=== PATIENT | male | born 1950 | race Caucasian/White ===

== ENCOUNTER 2017-03-05 05:32 | Outpatient (CLI) | payer BC ==
[~2017-03-05] VITALS: Ht 177.8 cm; Wt 83.9 kg
[2017-03-05] MEDS ORDERED: FLUT9.9S NS (14:41)
== END 2017-03-05 14:45 ==
LOC: PREOP 05:32
PROVIDERS: ATTEND Surgery
DX: Z01.818 Encounter for other preprocedural examination (principal); Z86.010 Personal history of colon polyps

== ENCOUNTER 2017-03-11 09:16 | Day surgery (SDC) | payer BC ==
[~2017-03-11] VITALS: Ht 177.8 cm; Wt 83.9 kg
[~2017-03-11 09:16] MED LIST: FLUT9.9S NS
[2017-03-11 09:25] VITALS: BP_SYST 120; BP_SYST 127; BP_DIAS 67; BP_DIAS 70
[2017-03-11] MEDS ORDERED: NS IV 500 ML 500 ML ONE (09:25)
[2017-03-11] MEDS ORDERED: NS IV 500 ML 500 ML IV PRN (09:25)
[2017-03-11] MEDS ORDERED: LIDOCAINE JELLY 2% (XYLOCAINE) 5 ML TUBE MM PRN (09:30)
[2017-03-11] MEDS ORDERED: fentaNYL INJECTION 100 MCG/2 ML AMP ONE ×2 (10:37)
[2017-03-11] MEDS ORDERED: MIDAZOLAM 2 MG/2 ML (VERSED) VIAL ONE ×4 (10:37)
[2017-03-11] MEDS ORDERED: LIDOCAINE JELLY 2% (XYLOCAINE) 5 ML TUBE ONE (10:38)
[2017-03-11] MEDS: fentaNYL INJECTION 100 MCG/2 ML AMP IVP PRN ×3 (10:42→11:05)
[2017-03-11] MEDS: MIDAZOLAM 2 MG/2 ML (VERSED) VIAL IVP PRN ×4 (10:48→11:08)
--- NOTE | 2017-03-11 11:55 | Conscious Sedation/ASA ---
Conscious Sedation Pre-Proced Time Reviewed: 10:00 ASA Class: 2 Airway Mallampati Classification: ([place] appropriate class) I. II. III, IV Lungs Heart ASA score ASA 1: a normal healthy patient ASA 2: a patient with a mild systemic disease (mid diabetes, controlled hypertension, obesity ASA 3: a patient with a severe systemic disease that limits activity (angina , COPD, prior Myocardial infarction) ASA 4: a patient with an incapacitating disease that is a constant threat to life (CHF, renal failure) ASA 5: a moribund patient not expected to survive 24 hrs. (ruptured aneurysm) ASA 6: a declared brain patient whose organs are being harvested. For emergent operations, add the letter E after the classification Grade 2 Sedation Plan: Analgesia, Amnesia, Plan communicated to team members, Discussed options with patient/fam, Discussed risks with patient/fam Note The patient is an appropriate candidate to undergo the planned procedure, sedation, and anesthesia. The patient immediately re-assessed prior to indication. GALLITO ZHU MD Mar 11, 2017 11:55 am
--- NOTE | 2017-03-11 11:56 | Progress Note-Pre Operative ---
Pre-Operative Progress Note H&P Reviewed The H&P was reviewed, patient examined and no changes noted. Date Seen by Provider: Mar 11, 2017 Time Seen by Provider: 10:00 Date H&P Reviewed: Mar 11, 2017 Time H&P Reviewed: 10:00 Pre-Operative Diagnosis: screening colonoscopy GALLITO ZHU MD Mar 11, 2017 11:55 am
--- NOTE | 2017-03-11 11:57 | Progress Note-Post Operative ---
Post-Operative Progess Note Surgeon (s)/Plant Operator (s) Surgeon GALLITO ZHU MD Plant Operator: none Pre-Operative Diagnosis screening colonoscopy Post-Operative Diagnosis chronic stage 2 ext and int hemorrhoids Procedure & Operative Findings Date of Procedure 03/11/17 Procedure Performed/Findings Colonoscopy Anesthesia Type CS Estimated Blood Loss Estimated blood loss (mL): minimal Specimens/Packing Specimens Removed none GALLITO ZHU MD Mar 11, 2017 11:56 am
--- NOTE | 2017-03-11 11:58 | Discharge Inst-Surgical ---
D/C Lap Instructions-AUDRA Follow Up 10 years Activity as tolerated High Fiber Diet 25g or more per day Avoid Alcohol, Caffeine, Spicy [place] and Acid foods. Drink 64 fluid oz or more of fluids per day. Symptoms to Report: Fever over 101 degree F, Nausea/Vomiting If any problems/questions: Contact your physician or go to Emergency Room GALLITO ZHU MD Mar 11, 2017 11:58 am
[2017-03-11 12:00] VITALS: BP 111/63
[2017-03-11] MEDS ORDERED: morphine INJ 10 MG/ML 1ML (SYR OR VIAL) IV PRN (12:00)
[2017-03-11] MEDS ORDERED: ACETAMINOPHEN 325 MG TABLET/CAPLET (TYLENOL) PO PRN (12:00)
[2017-03-11] MEDS ORDERED: ONDANSETRON 4 MG/2 ML (SDV) Z0FRAN IV PRN (12:00)
[2017-03-11] MEDS ORDERED: HYDROcodone/APAP 5 MG/325 MG (LORTAB) TAB PO PRN (12:00)
--- NOTE | 2017-03-11 12:18 | OPERATIVE REPORT ---
DATE OF SERVICE: 03/11/2017 ATTENDING PRIMARY CARE PHYSICIAN: Dr. Fuad Taveras. PREOPERATIVE DIAGNOSIS: Screening colonoscopy. POSTOPERATIVE DIAGNOSIS: Chronic stage II external and internal hemorrhoids. PROCEDURE: Colonoscopy. SURGEON: Dr. Zhu. ANESTHESIA: Conscious sedation. ESTIMATED BLOOD LOSS: Minimal. FINDINGS: Chronic stage II external and internal hemorrhoids, not actively edematous nor inflamed and no bleeding. Prostate gland was palpable and appeared normal. The remainder of the rectum and colon were normal. There were no polyps identified. DISPOSITION: The patient tolerated the procedure well. INDICATIONS: The patient is a 66-year-old male in need of a screening colonoscopy. His last colonoscopy in 2010 which was normal. He did have a colonoscopies in 2007, 2006 and 2005 where he was found to have colon polyps which were biopsied and found to be benign. No major issues of diarrhea nor constipation. He also does not report any family history of colon cancer. DESCRIPTION OF PROCEDURE: The patient was brought to the endoscopy suite, laid in the left lateral decubitus position. After adequate IV pain and sedating medications and conscious sedation anesthesia, a digital rectal examination was performed. Mild chronic stage II external and internal hemorrhoids were identified which were not actively edematous nor inflamed and no bleeding. Normal sphincter tone was felt and there were no palpable masses. Prostate gland was palpable and appeared normal. The endoscope was then intubated to the anus and rectum and gently insufflated. The endoscope was then advanced to the valves of B[place] of the rectum with no polyps or any neoplasms identified. The endoscope was then advanced through the sigmoid colon where no significant diverticulosis identified. The endoscope was then advanced through the remainder of the descending, transverse and ascending colon to the cecum. These segments were normal. There were no polyps or any neoplasms identified throughout the colon or rectum. The endoscope was then slowly withdrawn with taking a second look and suctioning of residual air with no additional findings. The patient tolerated the procedure well. We will recommend continued medical management with a high fiber diet with at least 30 grams of fiber per day as well as at least 64 fluid ounces of water daily to promote soft stools on a daily basis. From our perspective as he does not have a family history of colon cancer. He may wait another 10 years for his next colonoscopy. Job ID: [id number] DocumentID: [id number] Dictated Date: 03/11/2017 11:34:28 Wash Test Checker Date: 03/11/2017 12:18:08 Dictated By: GALLITO ZHU MD
[2017-03-11 12:24] VITALS: BP 117/69
[2017-03-11 12:26] VITALS: BP 117/69
== END 2017-03-11 12:30 | disposition home or self-care (01) ==
LOC: ENDO 09:16
PROVIDERS: ATTEND Surgery
DX: Z12.11 Encounter for screening for malignant neoplasm of colon (principal); K64.1 Second degree hemorrhoids; J30.2 Other seasonal allergic rhinitis; Z87.891 Personal history of nicotine dependence

== ENCOUNTER 2019-01-31 14:04 | Outpatient (CLI) | payer MEDICARE, OTHER | END 2019-01-31 15:00 | disposition home or self-care (01) | LOC: SLEEP 14:04 | PROVIDERS: ATTEND Otolaryngology Otolaryngology/Facial Plastic Surgery | DX: G47.33 Obstructive sleep apnea (adult) (pediatric) (principal) ==

== ENCOUNTER → 2021-01-01 | Outpatient (CLI) | payer MEDICARE, OTHER | LOC: RAD 14:35 | PROVIDERS: ATTEND Pediatrics | DX: Z12.2 Encounter for screening for malignant neoplasm of respiratory organs (principal); F17.210 Nicotine dependence, cigarettes, uncomplicated ==

== ENCOUNTER 2022-04-17 08:29 | Outpatient (CLI) | payer MEDICARE, OTHER ==
[~2022-04-17] VITALS: Ht 180 cm; Wt 82.0 kg
[2022-04-17] VITALS (11 sets, daily range): BP systolic 110–134; BP diastolic 52–80
[2022-04-17 08:56] LABS: HEMATOCRIT 44 % (40-54); HEMOGLOBIN 15.2 g/dL (13.3-17.7); MEAN CORPUSCULAR HEMOGLOBIN 29 pg (25-34); MEAN CORPUSCULAR HGB CONC 35 g/dL (32-36); MEAN CORPUSCULAR VOLUME 83 fL (80-99); MEAN PLATELET VOLUME 8.9 fL (9.0-12.2); PLATELET COUNT 267 10^3/uL (130-400); WHITE BLOOD COUNT 4.1 10^3/uL (4.3-11.0)
[2022-04-17 09:17] LABS: INR 1.1 (0.8-1.4); PROTHROMBIN TIME PATIENT 14.2 SEC (12.2-14.7)
[2022-04-17] MEDS ORDERED: NS IV 1000 ML 1,000 ML IV STA (09:36)
[2022-04-17] MEDS ORDERED: LIDOCAINE 1% INJ 10 ML VIAL INJ ONE (09:45)
[2022-04-17] MEDS ORDERED: MIDAZOLAM 2 MG/2 ML (VERSED) VIAL IVP ONE (09:45)
[2022-04-17] MEDS ORDERED: fentaNYL INJ 100 MCG/2 ML AMP IVP ONE (09:45)
[2022-04-17] MEDS ORDERED: HYDROcodone/APAP 5 MG/325 MG (LORTAB) TAB PO PRN (11:30)
--- NOTE | 2022-04-17 11:52 | Pre-Op Note & Conscious Sedat ---
Pre-Operative Progress Note Date of Available H&P: Apr 17, 2022 Date H&P Reviewed: Apr 17, 2022 Time H&P Reviewed: 10:00 Pre-Op Diagnosis: liver mass Conscious Sedation Pre-Proced Time 10:00 ASA Score 2 For ASA 3 and 4: Consider anesthesia and medical clearance. Also, for patients with a history of failed moderate sedation consider anesthesia. Airway Lungs Heart ASA score ASA 1: a normal healthy patient ASA 2: a patient with a mild systemic disease (mid diabetes, controlled hypertension, obesity ASA 3: a patient with a severe systemic disease that limits activity (angina, COPD, prior Myocardial infarction) ASA 4: a patient with an incapacitating disease that is a constant threat to life (CHF, renal failure) ASA 5: a moribund patient not expected to survive 24 hrs. (ruptured aneurysm) ASA 6: a declared brain- patient whose organs are being harvested. For emergent operations, add the letter E after the classification Mallampati Classification Grade 2 Sedation Plan Analgesia, Amnesia, Plan communicated to team members, Discussed options with patient/fam, Discussed risks with patient/fam The patient is an appropriate candidate to undergo the planned procedure, sedation, and anesthesia. The patient immediately re-assessed prior to indication. LUIS ALFREDO DOWNS MD Apr 17, 2022 11:52
--- NOTE | 2022-04-17 12:13 | Diagnostic Imaging Report ---
INDICATION: Liver mass. Patient presents for CT-guided biopsy. TECHNIQUE: All CT scans use one or more of the following dose optimizing techniques: automated exposure control, MA and/or KvP adjustment based on patient size and exam type or iterative reconstruction. Patient brought to the CT suite placed on table in the supine position. Axial imaging through the abdomen was performed to evaluate appropriate entry site. The procedure was performed utilizing conscious sedation with radiology nursing and constant patient monitoring. Patient was given a total of 50 mcg of fentanyl intra-venously and 1 mg of Versed intravenously. Total procedure time is approximately 10 minutes. The right upper quadrant was prepped and draped in usual sterile fashion. Small amount of 1% lidocaine was utilized for local anesthesia. 18-gauge coaxial Temno needle was advanced and placed with tip along the margin of the low density mass left lobe of liver. Total of 4 core biopsies were obtained. A blood patch was injected during needle removal. Follow-up imaging shows no complicating features. Patient tolerated the procedure well and left the department in stable condition. IMPRESSION: Successful CT-guided liver mass biopsy utilizing conscious sedation. Pathology results are currently pending. Dictated by: Dictated on workstation # [id number]
== END 2022-04-17 13:05 | disposition home or self-care (01) ==
LOC: SDC 08:29
PROVIDERS: ATTEND Pediatrics
DX: R16.0 Hepatomegaly, not elsewhere classified (principal)
CPT/HCPCS: 36415; 77012; 85027; 85610; 85730; 99156

== ENCOUNTER 2023-06-09 14:39 | Outpatient (CLI) | payer MEDICARE, OTHER ==
[~2023-06-09] VITALS: Ht 180.3 cm; Wt 86.0 kg
[2023-06-10] MEDS ORDERED: MULT-1136 PO (13:35)
[2023-06-10] MEDS ORDERED: LORA10TA7 PO (13:35)
== END 2023-06-10 13:44 | disposition home or self-care (01) ==
LOC: PREOP 14:39
PROVIDERS: ATTEND Specialist
DX: Z01.818 Encounter for other preprocedural examination (principal)

== ENCOUNTER 2023-06-12 06:52 | Day surgery (SDC) | payer MEDICARE, OTHER ==
[~2023-06-12] VITALS: Ht 180.2 cm; Wt 86.0 kg
[~2023-06-12 06:52] MED LIST changes: +LORA10TA7 PO; +MULT-1136 PO
[2023-06-12] MEDS ORDERED: MOXIFLOXACIN OPHTH SOLN 5 MG/ML 0.5 ML SYRINGE OP ONE (07:15)
[2023-06-12] MEDS ORDERED: TIMOLOL 0.5% (CATARACTS) 0.3 ML BTL OU PRN (07:15)
[2023-06-12] MEDS ORDERED: LIDOCAINE PF 1% 2 ML VIAL IR PRN (07:15)
[2023-06-12] MEDS ORDERED: POVIDONE IODINE OPHTH SOLN 5% 30 ML OP ONE (07:15)
[2023-06-12] MEDS: TETRACAINE 0.5% OPHTH SOLN 5 ML BTL OU PRN ×4 (07:16→07:36)
[2023-06-12] MEDS ORDERED: MIDAZOLAM INJ 2 MG/2 ML VIAL ONE (07:16)
[2023-06-12] MEDS: PHENYLEPHRINE 10% OPHTH SOLN 5 ML BTL OU SCH ×3 (07:23→07:36)
[2023-06-12] MEDS: TROPICAMIDE 1% OPH SOLN (MYDRIACYL) 15 ML BTL OP SCH ×3 (07:23→07:36)
[2023-06-12 07:46] VITALS: BP 141/82
--- NOTE | 2023-06-12 08:04 | Ophthalmologist Pre-Op Note ---
Pre-Operative Progress Note H&P Reviewed The H&P was reviewed, patient examined and no changes noted. Date H&P Reviewed: Jun 12, 2023 Time H&P Reviewed: 08:04 Pre-Op Dx Cataract, Right Eye NAMAN AMEZCUA MD Jun 12, 2023 08:04
--- NOTE | 2023-06-12 08:24 | Ophthalmology Operative Report ---
Cataract removal/placement IOL PREOPERATIVE DIAGNOSIS: Cataract Right Eye POSTOPERATIVE DIAGNOSIS: Cataract Right Eye PROCEDURE: Cataract removal and placement of posterior chamber implant, right eye SURGEON: Herbert Amezcua ANESTHESIA: Topical with sedation COMPLICATIONS: None ESTIMATED BLOOD LOSS: Minimal DESCRIPTION OF PROCEDURE: After proper informed consent was obtained, the patient, a 72 male, was taken to the Operating Room and the right eye was anesthetized with tetracaine. The right eye was then prepped and draped in the usual manner. A wire lid speculum was placed. A paracentesis was made at the left hand position. Preservative free lidocaine was injected into the anterior chamber followed by viscoelastic. A clear corneal incision was made in the temporal position. A capsulorrhexis was preformed and the central nuclear and cortical material were removed. The posterior capsule was polished and Juan José 22.0 [id number] IOL was placed into the capsular bag. The residual viscoelastic was aspirated and balanced saline solution was injected into the anterior chamber. Moxifloxacin was injected into the anterior chamber. The wound was checked and found to be water tight. The patient tolerated the procedure well without complications. HERBERT AMEZCUA MD Jun 12, 2023 08:24
[2023-06-12 08:31] VITALS: BP 134/76
--- NOTE | 2023-06-12 12:43 | Anesthesia-General Post-Op ---
MAC Patient Condition Mental Status/LOC: Same as Preop Cardiovascular: Satisfactory Nausea/Vomiting: Absent Respiratory: Satisfactory Pain: Controlled Complications: Absent Post Op Complications Complications None Follow Up Care/Instructions Patient Instructions None needed. Anesthesiology Discharge Order Discharge Order Patient was doing well after the procedure with no complaints, stable vital signs, no apparent adverse anesthesia problems. No complications reported per nursing. LOPEZ HARP DO Jun 12, 2023 12:43
== END 2023-06-12 08:33 | disposition home or self-care (01) ==
LOC: SDC 06:52
PROVIDERS: ATTEND Specialist
DX: H25.9 Unspecified age-related cataract (principal); Z87.891 Personal history of nicotine dependence
CPT/HCPCS: 66984; V2632